=== PATIENT | female | born 1970 | race Caucasian/White ===

== ENCOUNTER 2016-11-20 01:01 | Emergency (ER) ==
[2016-11-20] MEDS ORDERED: ZOFRAN IV ONE (01:16)
[2016-11-20] MEDS ORDERED: NS 1,000 ML IV ONE (01:16)
[2016-11-20] MEDS ORDERED: PHENERGAN IV ONE (01:32)
[2016-11-20] MEDS ORDERED: SODIUM CHLORIDE 0.9% INJ ONE (01:32)
[2016-11-20 01:33] LABS: MANUAL DIFF NEEDED? NO
[2016-11-20] MEDS ORDERED: TORADOL IV ONE (01:33)
--- NOTE | 2016-11-20 01:38 | PROVIDER DOCUMENTATION ---
HPI-General Adult - General Source: patient - History of Present Illness -Gen Adult Nature of Presenting Problems: 46 YOWF PRESENTS TO ED WITH C/O PT STATES SHE HAS HAD 8 EPISODES OF VOMITING SINCE 8:30 TONIGHT. PT STATES SHE HAS HAD SOME DIARRHEA. ABDOMINAL CRAMPING FROM VOMITING. Location of Pain/Injury: reports: abdomen Pain Radiation: reports: no radiation Quality of Pain: reports: cramping Severity: reports: mild Onset/Duration: reports: 4-6 hours ago Timing: reports: still present Context/Activities at Onset: reports: light activity Modifying Factors: improves with: nothing Associated Symptoms: reports: diarrhea, nausea, vomiting Similar Symptoms Previously?: No Recently seen or treated by another doctor?: No <Brian Huerta - Last Filed: 11/20/16 01:33> <Jose Silver - Last Filed: 11/20/16 03:09> - General Chief Complaint: N/V/D Stated Complaint: N/V/D Time Seen by Provider: 11/20/16 01:15 Allergies/Adverse Reactions: Patient Allergies Allergy/AdvReac Type Severity Reaction Status Date / Time acetaminophen [From Lortab] Allergy RASH Verified 04/03/15 13:36 benzocaine Allergy RASH Verified 04/03/15 13:36 citalopram hydrobromide * Allergy RASH Verified 04/03/15 13:36 [From Celexa] erythromycin base Allergy RASH Verified 04/03/15 13:36 hydrocodone bitartrate * Allergy RASH Verified 04/03/15 13:36 [From Lortab] morphine Allergy RASH Verified 04/03/15 13:36 nitrofurantoin Allergy RASH Verified 04/03/15 13:36 macrocrystalline * [From Macrodantin] Penicillins Allergy RASH Verified 04/03/15 13:36 povidone-iodine Allergy RASH Verified 04/03/15 13:36 [From Betadine] soap * [From Betadine] Allergy RASH Verified 04/03/15 13:36 tetracycline Allergy RASH Verified 04/03/15 13:36 venlafaxine HCl * Allergy RASH Verified 04/03/15 13:36 [From Effexor] vilazodone HCl * Allergy RASH Verified 04/03/15 13:36 [From Viibryd] Review of Systems - Adult - REVIEW OF SYSTEMS - ADULT Constitutional: denies: chills, fever Eyes: reports: no symptoms reported Ears, Nose, Mouth & Throat: reports: no symptoms reported Cardiovascular: denies: chest pain, palpitations, syncope Respiratory: denies: cough, shortness of breath, wheezing Gastrointestinal: reports: abdominal pain, diarrhea, nausea, vomiting Genitourinary: reports: no symptoms reported Musculoskeletal: denies: back pain, neck pain Integumentary: reports: no symptoms reported Neurological: denies: dizziness/vertigo, headache/migraines, syncope Psychiatric: reports: no symptoms reported Endocrine: reports: no symptoms reported Hematologic/Lymphatic: reports: no symptoms reported Allergic/Immunologic: reports: no symptoms reported All Other Systems: Reviewed and Negative <Brian Huerta - Last Filed: 11/20/16 01:33> Past History - Adult - PAST MEDICAL HISTORY-ADULT Review of Records: reports: Nursing Assessment Review, Medications Reviewed Cardiovascular: reports: HTN, hyperlipidemia, murmur Obstetrical/Gynecological: reports: other (PCOS) Psychiatric: reports: anxiety - PRIOR SURGERIES/PROCEDURES Surgical/Procedure History: reports: appendectomy, colonoscopy, hysterectomy, BTL, , other (removal of right ovary) - IMMUNIZATION STATUS Childhood Immunizations: See Nurse Assessment Flu Vaccine: See Nurse Assessment - SOCIAL HISTORY Smoking: denies Substance Use: alcohol Alcohol Use Frequency: occasionally Number of drinks per typical drinking period:: 3-4 drinks Living Situation: family <Brian Huerta - Last Filed: 11/20/16 01:33> Physical Exam-General - CONSTITUTIONAL General Appearance: alert, mild distress - EYES Eyes: PERRL/EOMI, pink conjunctivae - HEAD, EARS, NOSE, MOUTH & THROAT HENMT: normocephalic/atraumatic, moist mucous membranes - NECK Neck: non-tender, full range of motion, supple - RESPIRATORY Respiratory: chest non-tender, lungs clear, normal breath sounds - CARDIOVASCULAR Cardiovascular: normal peripheral pulses, regular rate, rhythm - GASTROINTESTINAL (ABDOMEN) Abdominal Exam: normal bowel sounds, non tender, soft - LYMPHATIC Lymphatic: no adenopathy - MUSCULOSKELETAL Back Exam: normal inspection, no CVA tenderness, no vertebral tenderness Extremity: normal range of motion, non-tender - SKIN Integumentary: normal color, normal turgor, warm/dry - NEUROLOGIC Neurologic: grossly normal - PSYCHIATRIC Psych/Mental Status: oriented x 3 <Brian Huerta - Last Filed: 11/20/16 01:33> Progress - PLAN OF CARE/RESULTS Progress/Plan/Lab Results: Laboratory Tests 11/20/16 11/20/16 11/20/16 01:29 01:29 01:29 WBC 15.37 H RBC 4.49 Hgb 13.4 Hct 40.0 MCV 89.1 MCH 29.8 MCHC 33.5 RDW Std Deviation 12.7 Plt Count 312 MPV 9.5 Immature Gran % (Auto) 0.3 Neut % (Auto) 78.6 H Lymph % (Auto) 12.2 L [place] % (Auto) 8.3 Eos % (Auto) 0.5 Baso % (Auto) 0.1 Immature Gran # (Auto) 0.04 Neut # (Auto) 12.09 H Lymph # (Auto) 1.87 [place] # (Auto) 1.28 H Eos # (Auto) 0.07 Baso # (Auto) 0.02 Sodium 138 Potassium 3.3 L Chloride 101 Carbon Dioxide 24 L Anion Gap 13 BUN 14 Creatinine 0.7 Estimated GFR/1.73 m2 > 60 BUN/Creatinine Ratio 20 Glucose 117 H Calculated Osmolality 277 Calcium 8.6 L Total Bilirubin 0.30 AST 17 ALT 16 Alkaline Phosphatase 83 Total Protein 7.0 Albumin 4.0 Globulin 3.0 Albumin/Globulin Ratio 1.0 Lipase 20 Orders Category Date Time Status CBC WITH ELECTRONIC DIFF [HEME] Stat Lab 11/20/16 01:29 Completed CMP [COMPREHENSIVE METABOLIC PANEL] [CHEM] Stat Lab 11/20/16 01:29 Completed LIPASE [CHEM] Stat Lab 11/20/16 01:29 Completed 0.9% Sodium Chloride Inj [Ns] 1,000 ml Med 11/20/16 01:16 Discontinued IV 999 mls/hr Diphenoxylate/Atropine [Lomotil] Med 11/20/16 03:07 Once 1 each PO NOW ONE Ketorolac [Toradol] Med 11/20/16 01:33 Discontinued 30 mg IV NOW ONE Ondansetron [Zofran] Med 11/20/16 01:16 Discontinued 4 mg IV NOW ONE Promethazine [Phenergan] Med 11/20/16 01:32 Discontinued 25 mg IV NOW ONE Sodium Chloride 0.9% Med 11/20/16 01:32 Discontinued 10 ml INJ NOW ONE Vital Signs Temp Pulse Resp BP Pulse Ox 11/20/16 01:05 97.5 F L 86 18 147/088 100 acetaminophen [From Lortab] Allergy (Verified 04/03/15 13:36) RASH benzocaine Allergy (Verified 04/03/15 13:36) RASH citalopram hydrobromide * [From Celexa] Allergy (Verified 04/03/15 13:36) RASH erythromycin base Allergy (Verified 04/03/15 13:36) RASH hydrocodone bitartrate * [From Lortab] Allergy (Verified 04/03/15 13:36) RASH morphine Allergy (Verified 04/03/15 13:36) RASH nitrofurantoin macrocrystalline * [From Macrodantin] Allergy (Verified 04/03/15 13:36) RASH Penicillins Allergy (Verified 04/03/15 13:36) RASH povidone-iodine [From Betadine] Allergy (Verified 04/03/15 13:36) RASH soap * [From Betadine] Allergy (Verified 04/03/15 13:36) RASH tetracycline Allergy (Verified 04/03/15 13:36) RASH venlafaxine HCl * [From Effexor] Allergy (Verified 04/03/15 13:36) RASH vilazodone HCl * [From Viibryd] Allergy (Verified 04/03/15 13:36) RASH Nebivolol [Bystolic] 5 mg PO DAILY #30 tablet 04/03/15 Laboratory 11/20/16 11/20/16 11/20/16 01:29 01:29 01:29 WBC 15.37 H RBC 4.49 Hgb 13.4 Hct 40.0 MCV 89.1 MCH 29.8 MCHC 33.5 RDW Std Deviation 12.7 Plt Count 312 MPV 9.5 Immature Gran % (Auto) 0.3 Neut % (Auto) 78.6 H Lymph % (Auto) 12.2 L [place] % (Auto) 8.3 Eos % (Auto) 0.5 Baso % (Auto) 0.1 Immature Gran # (Auto) 0.04 Neut # (Auto) 12.09 H Lymph # (Auto) 1.87 [place] # (Auto) 1.28 H Eos # (Auto) 0.07 Baso # (Auto) 0.02 Sodium 138 Potassium 3.3 L Chloride 101 Carbon Dioxide 24 L Anion Gap 13 BUN 14 Creatinine 0.7 Estimated GFR/1.73 m2 > 60 BUN/Creatinine Ratio 20 Glucose 117 H Calculated Osmolality 277 Calcium 8.6 L Total Bilirubin 0.30 AST 17 ALT 16 Alkaline Phosphatase 83 Total Protein 7.0 Albumin 4.0 Globulin 3.0 Albumin/Globulin Ratio 1.0 Lipase 20 - REASSESSMENT Reassessment #1 Time Reassessed: 03:08 (pt now able to drink without nausea or vomiting) Status: improving <Jose Silver - Last Filed: 11/20/16 03:09> Departure <Brian Huerta - Last Filed: 11/20/16 01:33> - Departure Time of Disposition Order: 03:08 Certified Medical Emergency: Emergent <Jose Silver - Last Filed: 11/20/16 03:09> - Departure DIAGNOSIS: Gastroenteritis Disposition: HOME 01 Condition: Fair Additional Instructions: ED Follow Up Instructions: You have been treated by a care provider in the Emergency Department. These instructions are being provided to you so you can have an understanding of how to care for yourself upon discharge. Upon discharge from the Emergency Department, you are responsible for making arrangements for follow-up care by a physician of your choice. Take all prescribed medications as directed. Return to the Emergency Department immediately for any new or worsening symptoms. You may call the Physician Referral phone number at [phone] to obtain a list of Physicians who are taking new patients. Prescriptions: Diphenoxylate/Atropine [Lomotil] 1 each PO 4XDAY PRN PRN #20 tablet PRN Reason: Diarrhea Ondansetron [Zofran Odt] 8 mg PO Q8H PRN #20 tab.rapdis Attestation - Scribe Verification/Attestation Scribe:: Brian Huerta Acting as Scribe for:: Jose Silver Scribe documention review:: This chart was documented by a scribe and accurately reflects the service the provider performed and the decisions made by the provider. <Brian Huerta - Last Filed: 11/20/16 01:33> Physician Attestation
[2016-11-20 01:47] LABS: BASO% 0.1 % (0.0-0.8); EOS# 0.07 X1000 (0.0-0.7); EOS% 0.5 % (0.0-10.0); HEMOGLOBIN 13.4 g/dL (12.0-16.0); IMM GRAN# 0.04 X1000 (0.0-0.04); IMM GRAN% 0.3 % (0.0-0.5); LYMPH# 1.87 X1000 (1.2-3.4); LYMPH% 12.2 % (20.5-51.1); MCH 29.8 PG (27-31); MCHC 33.5 g/dL (33-37); MCV 89.1 FL (81-99); MONO# 1.28 X1000 (0.11-0.59); MONO% 8.3 % (1.7-9.3); MPV 9.5 FL (7.4-10.4); NEUT% 78.6 % (42.2-75.2); PLT 312 X1000 (130-400); RBC 4.49 XMIL (4.2-5.4)
[2016-11-20 02:53] LABS: AGAP 13; ALKALINE PHOSPHATASE 83 U/L (32-104); BUN 14 mg/dL (8-22); CALCIUM 8.6 mg/dL (8.8-10.2); CHLORIDE 101 mmol/L (98-107); COSMO 277; GOT 17 U/L (10-30); GPT 16 U/L (10-36); POTASSIUM 3.3 mmol/L (3.5-5.1); SODIUM 138 mmol/L (136-145); TCO2 24 mmol/L (25-35)
[2016-11-20] MEDS ORDERED: LOMOTIL PO ONE (03:07)
[2016-11-20 03:16] VITALS: BP 116/81
== END 2016-11-20 03:36 | disposition home or self-care (01) ==
LOC: P.ED 01:01
DX: K52.9 Noninfective gastroenteritis and colitis, unspecified (principal); R11.2 Nausea with vomiting, unspecified; R19.7 Diarrhea, unspecified; R10.9 Unspecified abdominal pain; I10 Essential (primary) hypertension; E78.5 Hyperlipidemia, unspecified; E28.2 Polycystic ovarian syndrome; Z79.899 Other long term (current) drug therapy
CPT/HCPCS: 80053; 83690; 85025; 96361; 96374; 96375; J1885; J2405; J2550; J7030